=== PATIENT | female | born 1930 | race Caucasian/White ===

== ENCOUNTER 2017-08-25 12:22 | Emergency (ER) | payer MEDICARE, OTHER ==
[~2017-08-25] VITALS: Ht 167.6 cm; Wt 68.5 kg
[2017-08-25 12:57] VITALS: Ht 167.6 cm; Wt 68.5 kg
[2017-08-25] MEDS ORDERED: ALBUTEROL 0.083% (NEB) 2.5 MG/3 ML AMP HHN STA (13:14)
[2017-08-25] MEDS ORDERED: IPRATROPIUM (NEB) 0.5 MG/2.5 ML AMP HHN ONE (13:30)
[2017-08-25] MEDS ORDERED: traMADol 50 MG TAB PO ONE (13:30)
--- NOTE | 2017-08-25 14:53 | RADRPT ---
PROCEDURE: XR Chest. CLINICAL INDICATION: Shortness of breath TECHNIQUE: Single portable view of the chest was obtained COMPARISON: August 17, 2009 FINDINGS: The trachea is midline. The cardiac silhouette and pulmonary vascularity are within normal limits. T he lungs are clear. The costophrenic angles are sharp. Old left-sided rib fractures are noted. IMPRESSION: 1. No evidence of acute cardiopulmonary disease. RPTAT: AAPP Physician Sebastián Date Time Electronically viewed and signed by Physician Sebastián on 08/25/2017 14:53 JL/
--- NOTE | 2017-08-25 14:57 | RADRPT ---
PROCEDURE: XR ribs . CLINICAL INDICATION: Rib pain TECHNIQUE: Multiple views of the right ribs were obtained. COMPARISON: None FINDINGS: There is an acute fracture over the right eleventh rib. The right lung is clear. Right costophrenic angle is sharp. No evidence of pleural effusion or gross pneumothorax. The right shoulder is unremar kable. IMPRESSION: 1. ACUTE FRACTURE OF THE RIGHT ELEVENTH RIB. The right lung is clear. No gross pneumothorax. RPTAT: AAPP Physician Sebastián Date Time Electronically viewed and signed by Stew Rangel Physician on 08/25/2017 14:57 ROXY/
[2017-08-25] MEDS ORDERED: AZIT250T94 PO (15:14)
[2017-08-25] MEDS ORDERED: ACET500C5 PO (15:14)
[2017-08-25] MEDS ORDERED: PRED20TA PO (15:14)
[2017-08-25] MEDS ORDERED: TRAM50TA2 PO (15:14)
--- NOTE | 2017-08-25 15:17 | ERD ---
ER Documentation Chief Complaint Date/Time DATE: 08/25/17 TIME: 15:15 Chief Complaint FELL YESTERDAY WITH HIP PAIN NOW AND SOB HPI This 86-year-old female slipped and fell going to the bathroom last night. She hit her right rib area on a bucket. She has history of asthma and is wheezing as well. She has pain. She denies fevers, hemoptysis, anterior sustained chest pain, vomiting, abdominal pain. ROS All systems reviewed and are negative except as per history of present illness. Medications Home Meds Active Scripts Azithromycin* (Zithromax*) 250 Mg Tablet, 250 MG PO .ZPACK DIRECTED, #6 TAB TAKE 500 MG (2 TABS) THE FIRST DAY THEN 250 MG (1 TAB) DAYS 2-5 Prov:HELDER KOTHARI MD 08/25/17 Prednisone* (Prednisone*) 20 Mg Tab, 40 MG PO DAILY for 4 Days, TAB Start August 26, 2017 Prov:HELDER KOTHARI MD 08/25/17 Tramadol HCl (Tramadol HCl) 50 Mg Tablet, 50 MG PO Q4 Y for PAIN, #20 TAB Prov:HELDER KOTHARI MD 08/25/17 Acetaminophen* (Tylophen*) 500 Mg Capsule, 1 CAP PO Q6H Y for PAIN AND OR ELEVATED TEMP, #20 CAP Prov:HELDER KOTHARI MD 08/25/17 Allergies Allergies: Coded Allergies: No Known Allergy (Unverified , 08/25/17) PMhx/Soc History of Surgery: No Anesthesia Reaction: No Hx Neurological Disorder: No Hx Respiratory Disorders: No Hx Cardiac Disorders: Yes (htn) Hx Psychiatric Problems: No Hx Miscellaneous Medical Probl: Yes (dm) Hx Alcohol Use: No Hx Substance Use: No Hx Tobacco Use: No Physical Exam Vitals Vital Signs Date Time Temp Pulse Resp B/P Pulse Ox O2 Delivery O2 Flow Rate FiO2 08/25/17 13:36 93 18 94 21 08/25/17 12:57 97.2 87 22 126/66 95 Physical Exam Const: [], [id number] per Head: Atraumatic Eyes: Normal Conjunctiva ENT: Normal External Ears, Nose and Mouth. Neck: Full range of motion..~ No meningismus. Resp: Clear to auscultation bilaterally. Scattered wheezing and rhonchi diffusely without rales or retractions. Tender in the right T11 lateral rib area without crepitance, deformities, bleeding or lacerations. Cardio: Regular rate and rhythm, no murmurs Abd: Soft, non tender, non distended. Normal bowel sounds Skin: No petechiae or rashes Back: No midline or flank tenderness Ext: No cyanosis, or edema Neur: Awake and alert Psych: Normal Mood and Affect Results 24 hrs Current Medications Medications (Trade) Dose Ordered Sig/Fredrick Route PRN Reason Start Time Stop Time Status Last Admin Dose Admin Tramadol HCl (Ultram) 50 mg ONCE ONCE PO 08/25/17 13:30 08/25/17 13:31 DC 08/25/17 14:08 Albuterol (Proventil 0.083% (Neb)) 5 mg ONCE STAT HHN 08/25/17 13:14 08/25/17 13:17 DC 08/25/17 13:35 Ipratropium Hundred (Atrovent 0.02% (Neb)) 0.5 mg ONCE ONCE HHN 08/25/17 13:30 08/25/17 13:31 DC 08/25/17 13:35 Dexamethasone (Decadron) 8 mg ONCE ONCE PO 08/25/17 15:30 08/25/17 15:30 DC Prednisone (Prednisone) 40 mg ONCE ONCE PO 08/25/17 15:30 08/25/17 15:31 Procedures/MDM AP-lateral 2 view right rib shows isolated T11 rib fracture without hematomas, pneumothorax. Chest X-ray 1V Interpreted by me: Soft Tissue: No acute abnormalities Bones: No acute abnormalities Mediastinum/Cardiac Silhouette/Lungs: [No acute abnormalities] have normal 1 view chest x-ray EKG: Rate/Rhythm: [Normal Sinus Rhythm] rate equals 83 QRS, ST, T-waves: [No changes consistent w/ acute ischemia] Impression: [No evidence of ischemia or arrhythmia]. Impression-low voltage but no acute findings of ischemia or arrhythmias. Was given albuterol and Atrovent treatment. Patient was given prednisone 40 mg by mouth tramadol 50 mg by mouth. Patient presents with signs and symptoms of right rib fracture and bronchitis with wheezing. There is no evidence of hemothorax, pneumothorax, respiratory distress, hypoxemia, acute abdomen. She will discharged home a short course of prednisone, Zithromax and tramadol and primary care follow-up, return precautions and further observation. All history appears to be a mechanical not related to any acute cardiopulmonary or neurologic condition. The patient was stable with no new complaints during the ER course. Clinically, there is no current evidence to suggest meningitis, sepsis, acute abdomen, pneumonia, acute coronary syndrome, pulmonary embolism, or any other emergent condition appearing to require further evaluation or hospitalization. The patient should certainly return for any new or worsening symptoms per the aftercare instructions. They should otherwise follow-up with her primary care doctor for reevaluation this week. Departure Diagnosis: Primary Impression: Asthma Asthma severity: unspecified severity Asthma persistence: unspecified Asthma complication type: unspecified Qualified Code: J45.909 - Asthma, unspecified asthma severity, unspecified whether complicated, unspecified whether persistent Additional Impression: Rib fracture Encounter type: initial encounter Rib fracture type: single rib Fracture type: closed Laterality: right Qualified Code: S22.31XA - Closed fracture of one rib of right side, initial encounter Condition: Stable Patient Instructions: Rib Fracture (Broken Rib), Asthma, Acute (Adult) Additional Instructions: Recheck for fevers, blood, shortness of breath, new or worsening symptoms. See primary doctor for follow-up. HELDER KOTHARI MD Aug 25, 2017 15:17
[2017-08-25] MEDS ORDERED: DEXAMETHASONE 4 MG TAB PO ONE (15:30)
[2017-08-25] MEDS ORDERED: predniSONE 20 MG TAB PO ONE (15:30)
[2017-08-25 15:54] VITALS: BP 154/88; PULSE 79; RESP 20; TEMP 98
== END 2017-08-25 15:55 | disposition home or self-care (01) ==
LOC: FTE 12:22
DX: J45.901 Unspecified asthma with (acute) exacerbation (principal); S22.31XA Fracture of one rib, right side, initial encounter for closed fracture; E11.9 Type 2 diabetes mellitus without complications; I10 Essential (primary) hypertension; W01.198A Fall on same level from slipping, tripping and stumbling with subsequent striking against other object, initial encounter; Y92.002 Bathroom of unspecified non-institutional (private) residence as the place of occurrence of the external cause
CPT/HCPCS: 71010; 71100; 93005; 94664; 99284; J7512